=== PATIENT | male | born 1980 | race Caucasian/White ===

== ENCOUNTER 2016-07-25 16:30 | Observation (INO) | payer OTHER ==
[~2016-07-25] VITALS: Ht 193 cm; Wt 86.0 kg
[~2016-07-25 16:30] MED LIST: CYCL-36 PO
[2016-07-25 16:33] VITALS: BP 133/74; PULSE 55; RESP 16; TEMP 98; O2SAT 97
--- NOTE | 2016-07-25 17:15 | PD ---
HPI Chief Complaint: Chest Pain Time Seen by Provider: 16:59 Travel History International Travel<30 days: No Contact w/Intl Traveler<30days: No Traveled to known affect area: No History of Present Illness HPI 35 years old male complains of left-sided chest pain. Patient states that he had persistent left-sided chest pain for the past 4 days. Patient states the pain in combination aching pain and sharp pain localized to left chest. Patient denies any pain radiation. Patient denies diaphoresis. Patient states the pain is worse with deep breathing. Patient states that he has intermittent nausea vomiting shortness of breath with the chest pain. Patient denies any coughing congestion fever chills. Patient denies any history of CAD. Patient denies history hypertension, diabetes, dyslipidemia. Patient is a nonsmoker. Patient has family history of heart disease and diabetes. On a scale of 1-10 the pain is a 3. Patient was evaluated at local urgent care and referred to ED for evaluation. PFSH Social History Alcohol Use: No Tobacco Use: No Allergies-Medications (Allergen,Severity, Reaction): Coded Allergies: No Known Allergies (Unverified , 07/25/16) Reported Meds & Prescriptions Reported Meds & Active Scripts Active Flexeril (Cyclobenzaprine HCl) 10 Mg Tab 10 Mg PO TID PRN Review of Systems General / Constitutional: No: Fever Eyes: No: Visual changes HENT: No: Headaches Cardiovascular: Positive: Chest Pain or Discomfort Respiratory: No: Shortness of Breath Gastrointestinal: No: Abdominal Pain Genitourinary: No: Dysuria Musculoskeletal: No: Pain Skin: No Rash Neurologic: No: Weakness Psychiatric: No: Depression Endocrine: No: Polydipsia Hematologic/Lymphatic: No: Easy Bruising Physical Exam Narrative GENERAL: Well-nourished, well-developed patient. SKIN: Focused skin assessment warm/dry. HEAD: Normocephalic. EYES: No scleral icterus. No injection or drainage. NECK: Supple, trachea midline. No JVD or lymphadenopathy. CARDIOVASCULAR: Regular rate and rhythm without murmurs, gallops, or rubs. RESPIRATORY: Breath sounds equal bilaterally. No accessory muscle use. GASTROINTESTINAL: Abdomen soft, non-tender, nondistended. MUSCULOSKELETAL: No cyanosis, or edema. BACK: Nontender without obvious deformity. No CVA tenderness. Neurologic exam normal. Data Data Last Documented VS Vital Signs Date Time Temp Pulse Resp B/P Pulse Ox O2 Delivery O2 Flow Rate FiO2 07/25/16 17:20 97 Nasal Cannula 2 07/25/16 17:04 50 18 07/25/16 16:33 98.0 133/74 Orders Electrocardiogram (07/25/16 ) Complete Blood Count With Diff (07/25/16 17:10) Comprehensive Metabolic Panel (07/25/16 17:10) Creatine Kinase (Cpk) (07/25/16 17:10) Troponin I (07/25/16 17:10) Prothrombin Time / Inr (Pt) (07/25/16 17:10) Act Partial Throm Time (Ptt) (07/25/16 17:10) D-Dimer (07/25/16 17:10) Chest, Single Ap (07/25/16 17:10) Iv Access Insert/Monitor (07/25/16 17:10) Ecg Monitoring (07/25/16 17:10) Oximetry (07/25/16 17:10) Ct Pulmonary Angiogram (07/25/16 17:10) Iohexol 350 Inj (Omnipaque 350 Inj) (07/25/16 18:36) Labs Laboratory Tests Test 07/25/16 07/25/16 17:15 17:18 Prothrombin Time 11.6 SEC Prothromb Time International 1.0 RATIO Ratio Activated Partial 25.5 SEC Thromboplast Time D-Dimer Quantitative (PE/DVT) LESS THAN 0.19 MG/L FEU White Blood Count 8.4 TH/MM3 Red Blood Count 4.68 MIL/MM3 Hemoglobin 14.7 GM/DL Hematocrit 41.1 % Mean Corpuscular Volume 87.8 FL Mean Corpuscular Hemoglobin 31.3 PG Mean Corpuscular Hemoglobin 35.6 % Concent Red Cell Distribution Width 12.8 % Platelet Count 224 TH/MM3 Mean Platelet Volume 9.0 FL Neutrophils (%) (Auto) 62.5 % Lymphocytes (%) (Auto) 25.7 % Monocytes (%) (Auto) 7.0 % Eosinophils (%) (Auto) 4.2 % Basophils (%) (Auto) 0.6 % Neutrophils # (Auto) 5.2 TH/MM3 Lymphocytes # (Auto) 2.2 TH/MM3 Monocytes # (Auto) 0.6 TH/MM3 Eosinophils # (Auto) 0.4 TH/MM3 Basophils # (Auto) 0.0 TH/MM3 CBC Comment DIFF FINAL Differential Comment Sodium Level 141 MEQ/L Potassium Level 3.9 MEQ/L Chloride Level 106 MEQ/L Carbon Dioxide Level 28.3 MEQ/L Anion Gap 7 MEQ/L Blood Urea Nitrogen 12 MG/DL Creatinine 1.22 MG/DL Estimat Glomerular Filtration 67 ML/MIN Rate Random Glucose 89 MG/DL Calcium Level 8.6 MG/DL Total Bilirubin 0.5 MG/DL Aspartate Amino Transf 19 U/L (AST/SGOT) Alanine Aminotransferase 31 U/L (ALT/SGPT) Alkaline Phosphatase 114 U/L Total Creatine Kinase 187 U/L Troponin I LESS THAN 0.02 NG/ML Total Protein 7.1 GM/DL Albumin 4.0 GM/DL MDM Medical Decision Making Medical Screen Exam Complete: Yes Emergency Medical Condition: Yes Interpretation(s) Last Impressions Chest X-Ray 07/25/16 1710 Signed Impressions: Service Date/Time: Monday, July 25, 2016 17:27 - CONCLUSION: No acute disease. Jevon Figueroa MD 1832 PM. CBC within normal limit. CMP within normal limits. Cardiac enzymes are normal. D-dimer normal. Differential Diagnosis Differential diagnosis including musculoskeletal, angina, UT, PE, pneumothorax. Narrative Course 35 years old male with left-sided chest pain. Aspirin 325 g by mouth. Patient will be admitted to the chest pain center. Diagnosis Primary Impression: Chest pain Qualified Code: R07.9 - Chest pain, unspecified type Admitting Information Admitting Physician Requests: Saúl Larsen MD Jul 25, 2016 17:15
[2016-07-25 17:20] VITALS: O2SAT 97
[2016-07-25 17:51] LABS: AUTOMATED NEUTROPHIL # 5.2 TH/MM3 (1.8-7.7); BASOPHIL % 0.6 % (0.0-2.0); EOSINOPHIL # 0.4 TH/MM3 (0-0.4); EOSINOPHIL % 4.2 % (0.0-4.0); HEMATOCRIT 41.1 % (39.0-51.0); HEMO FLAGS DIFF FINAL; LYMPH % 25.7 % (9.0-44.0); LYMPHOCYTE # 2.2 TH/MM3 (1.0-4.8); MEAN CELL VOLUME 87.8 FL (80.0-100.0); MEAN CORPUSCULAR HEMOGLOBIN 31.3 PG (27.0-34.0); MEAN CORPUSCULAR HGB CONC 35.6 % (32.0-36.0); NEUT % 62.5 % (16.0-70.0); PLATELET COUNT 224 TH/MM3 (150-450); RED BLOOD COUNT 4.68 MIL/MM3 (4.50-5.90); RED CELL DISTRIBUTION WIDTH 12.8 % (11.6-17.2); WHITE BLOOD COUNT 8.4 TH/MM3 (4.0-11.0)
--- NOTE | 2016-07-25 17:55 | RADRPT ---
EXAM DATE/TIME: 07/25/2016 17:27 [facility] COMPARISON: No previous studies available for comparison. INDICATIONS : Left sided chest pain starting today MEDICAL HISTORY : None. SURGICAL HISTORY : None. ENCOUNTER: Initial ACUITY: 1 day PAIN SCORE: 7/10 LOCATION: Left chest FINDINGS: 2 AP erect portable views of the chest demonstrates the lungs to be symmetrically aerated without dev dence of mass, infiltrate or effusion. The cardiomediastinal contours are unremarkable. Osseous str uctures are intact. CONCLUSION: No acute disease. Jevon Figueroa MD on July 25, 2016 at 17:53 Board Certified Radiologist. This report was verified electronically.
[2016-07-25 18:03] LABS: APTT (PATIENT) 25.5 SEC (24.3-30.1); PROTHROMBIN TIME - PATIENT 11.6 SEC (9.8-11.6)
[2016-07-25 18:05] LABS: ALT (GPT) 31 U/L (12-78); ANION GAP 7 MEQ/L (5-15); AST (GOT) 19 U/L (15-37); BICARBONATE 28.3 MEQ/L (21.0-32.0); BLOOD UREA NITROGEN 12 MG/DL (7-18); CHLORIDE 106 MEQ/L (98-107); GLOMERULAR FILTRATION RATE 67 ML/MIN (>89); POTASSIUM 3.9 MEQ/L (3.5-5.1); SODIUM (NA) 141 MEQ/L (136-145)
[2016-07-25 18:09] LABS: ALKALINE PHOSPHATASE 114 U/L (45-117); CREATINE KINASE 187 U/L (39-308); TOTAL BILIRUBIN ADULT 0.5 MG/DL (0.2-1.0)
[2016-07-25] MEDS ORDERED: IOHEXOL 350 MG/ML 10 ML VIAL (for RAD DIAG) IV ONE (18:36)
--- NOTE | 2016-07-25 18:48 | RADRPT ---
EXAM DATE/TIME: 07/25/2016 18:30 [facility] COMPARISON: No previous studies available for comparison. INDICATIONS : Left sided chest pains for four days. IV CONTRAST: 70 cc Omnipaque 350 (iohexol) IV RADIATION DOSE: 23.62 CTDIvol (mGy) MEDICAL HISTORY : None SURGICAL HISTORY : None. ENCOUNTER: Initial ACUITY: 4 - 6 days PAIN SCALE: 5/10 LOCATION: Left chest TECHNIQUE: Volumetric scanning of the chest was performed using a pulmonary embolism protocol MIP images were re constructed. Using automated exposure control and adjustment of the mA and/or kV according to patien t size, radiation dose was kept as low as reasonably achievable to obtain optimal diagnostic quality images. FINDINGS: PULMONARY ARTERIES: No filling defects are seen in the pulmonary arteries through the segmental level. LUNGS: There is no consolidation or pneumothorax . No concerning pulmonary nodule is visualized. PLEURAE: There is no pleural thickening or pleural effusion. MEDIASTINUM: There is good visualization of the great vessels of the middle mediastinum. No evidence of mediastin al or hilar adenopathy/mass. MUSCULOSKELETAL: Within normal limits for patient age. MISCELLANEOUS: The visualized upper abdominal organs demonstrate no acute abnormality. CONCLUSION: No PE or other acute abnormality demonstrated. Shaq Elizondo MD on July 25, 2016 at 18:46 Board Certified Radiologist. This report was verified electronically.
[2016-07-25] MEDS ORDERED: ASPIRIN 325 MG TAB PO ONE (19:00)
[2016-07-25] MEDS ORDERED: ACETAMINOPHEN 500 MG CPLT PO PRN (19:00)
[2016-07-25] MEDS ORDERED: SODIUM CHLORIDE 0.9% FLUSH 10 ML FLUSH IV FLUSH PRN (19:00)
[2016-07-25] MEDS ORDERED: NITROGLYCERIN 0.4 MG SL 25 TABS/BTL SL PRN (19:00)
[2016-07-25] MEDS ORDERED: ONDANSETRON HCL 4 MG/2 ML VIAL IV PRN (19:00)
[2016-07-25] MEDS ORDERED: SODIUM CHLORIDE 0.9% FLUSH 10 ML FLUSH IV FLUSH SCH (21:00)
[2016-07-25 22:13] LABS: CREATINE KINASE 160 U/L (39-308)
[2016-07-25 22:18] VITALS: BP 131/66; PULSE 55; RESP 21; O2SAT 99
[2016-07-25 22:25] LABS: CKMB 1.9 NG/ML (0.5-3.6)
[2016-07-26 00:01] VITALS: PULSE 44
[2016-07-26 00:20] LABS: CREATINE KINASE 148 U/L (39-308)
[2016-07-26 00:32] LABS: CKMB 1.2 NG/ML (0.5-3.6)
[2016-07-26 03:41] VITALS: BP 113/51; PULSE 45; RESP 20; TEMP 98.5; O2SAT 97
[2016-07-26 08:17] VITALS: O2SAT 97
[2016-07-26 08:26] VITALS: BP 120/51; PULSE 55; RESP 22; TEMP 97.9; O2SAT 98
--- NOTE | 2016-07-26 08:54 | HHI.HP ---
HPI Primary Care Physician No Primary Care Physician Chief Complaint Chest pain History of Present Illness 35-year-old male with no significant medical history presents to the emergency room for further evaluation of left sided pain. Onset 4 days ago. Location left lateral, under her breasts. No radiation. Duration constant 4 days. Precipitating factors he contributes to a muscle strain during exercise. Characterized as a sharp pain. Deep breathing and palpitation makes pain worse. No associated symptoms. No known relieving factors. 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 An EKG was completed and he was instructed to be evaluated in the ER. Has never had chest pain in the past. Review of Systems General: No fatigue,weakness, fever, chills, recent illness, or change in appetite. Has been in his general state of health. Active working out at the gym multiple times weekly. HEENT: No VARELA, no nasal congestion or drainage CV: As stated above. Continues to have chest pain as stated above. No palpitations, intermittent leg pain, dizziness. RESP: No SOB, cough, wheeze, or recent URI. GI: No nausea or vomiting, bowel changes, diarrhea, constipation, pain. : No dysuria, urgency, frequency EXT: No lower leg edema, no paraesthesias MS: No discomfort or change in ROM NEURO: No change in memory, dizziness, difficulty with balance, LOC, motor/ sensory deficits PSYCH: No anxiety or depression SKIN: No rashes, no concerning lesions Past Family Social History Allergies: Coded Allergies: No Known Allergies (Unverified , 07/25/16) Past Medical History None Past Surgical History None Reported Medications Reported Meds & Active Scripts Active No Active Prescriptions or Reported Medications Active Ordered Medications Current Medications Medications (Trade) Dose Ordered Sig/Dillon Route Start Time Stop Time Status Last Admin (NS Flush) 2 ml UNSCH PRN IV FLUSH 07/25/16 19:00 (NS Flush) 2 ml BID IV FLUSH 07/25/16 21:00 07/25/16 21:26 (Tylenol) 500 mg Q4H PRN PO 07/25/16 19:00 07/25/16 22:30 (Zofran Inj) 4 mg Q6H PRN IV 07/25/16 19:00 (Nitrostat Sl) 0.4 mg Q5M PRN SL 07/25/16 19:00 Family History Noncontributory for early onset cardiovascular disease. Social History No known diabetes, hyperlipidemia, or hypertension. Former user of chewing tobacco, quit many years ago. Denies any alcohol or illegal drug use. Active, works out at the gym on a regular basis. Past cardiac testing No formal cardiac testing Physical Exam Vital Signs Vital Signs Date Time Temp Pulse Resp B/P Pulse Ox O2 Delivery O2 Flow Rate FiO2 07/26/16 08:26 97.9 55 22 120/51 98 07/26/16 08:17 97 Nasal Cannula 2.00 07/26/16 03:41 98.5 45 20 113/51 97 07/26/16 03:41 45 07/26/16 00:01 44 07/25/16 22:18 55 21 131/66 99 07/25/16 17:20 97 Nasal Cannula 2 07/25/16 17:04 50 18 97 Room Air 07/25/16 16:33 98.0 55 16 133/74 97 Physical Exam GENERAL: Alert WN, WD, NAD, pleasant, male HEAD: NC, AT EYES: Sclera clear, conjunctiva without injection, pupils equal and round ENT: Mucous membranes pink and moist CV: RRR, without murmur, rub, gallop, no JVD, S1-S2 no S3-S4. RESP: Clear lungs throughout bilateral, no crackles, wheeze, rhonchi, symmetrical chest rise, nonlabored, able to speak in full sentences ABD: Soft, NT, ND, no masses, positive bowel tones EXT: Pulses +24, no dependent edema MS: Left lateral chest wall pain reproduced with palpitation and deep breathing. Normal tone 4 extremities, nontender, no obvious deformities, full range of motion NEURO: CN II through CN XII grossly intact, motor strength 5/5, gait WNL PSYCH: A+O 3, pleasant affect, appropriate speech, appropriate mood and affect , insight and judgment SKIN: Normal turgor, normal texture, no lesions, no rashes, brisk cap refill, even hair distribution Laboratory Laboratory Tests Test 07/25/16 07/25/16 07/25/16 07/25/16 17:15 17:18 21:00 23:23 Prothrombin Time 11.6 Prothromb Time International 1.0 Ratio Activated Partial 25.5 Thromboplast Time D-Dimer Quantitative (PE/DVT) LESS THAN 0.19 White Blood Count 8.4 Red Blood Count 4.68 Hemoglobin 14.7 Hematocrit 41.1 Mean Corpuscular Volume 87.8 Mean Corpuscular Hemoglobin 31.3 Mean Corpuscular Hemoglobin 35.6 Concent Red Cell Distribution Width 12.8 Platelet Count 224 Mean Platelet Volume 9.0 Neutrophils (%) (Auto) 62.5 Lymphocytes (%) (Auto) 25.7 Monocytes (%) (Auto) 7.0 Eosinophils (%) (Auto) 4.2 Basophils (%) (Auto) 0.6 Neutrophils # (Auto) 5.2 Lymphocytes # (Auto) 2.2 Monocytes # (Auto) 0.6 Eosinophils # (Auto) 0.4 Basophils # (Auto) 0.0 CBC Comment DIFF FINAL Differential Comment Sodium Level 141 Potassium Level 3.9 Chloride Level 106 Carbon Dioxide Level 28.3 Anion Gap 7 Blood Urea Nitrogen 12 Creatinine 1.22 Estimat Glomerular Filtration 67 Rate Random Glucose 89 Calcium Level 8.6 Total Bilirubin 0.5 Aspartate Amino Transf 19 (AST/SGOT) Alanine Aminotransferase 31 (ALT/SGPT) Alkaline Phosphatase 114 Total Creatine Kinase 187 160 148 Troponin I LESS THAN 0.02 LESS THAN 0.02 LESS THAN 0.02 Total Protein 7.1 Albumin 4.0 Creatine Kinase MB 1.9 1.2 Result Diagram: 07/25/16171707/25/161717 Imaging Last Impressions Chest X-Ray 07/25/161709 Signed Impressions: Service Date/Time: Monday, July 25, 2016 17:27 - CONCLUSION: No acute disease. Jevon Figueroa MD CT Angiography 07/25/161709 Signed Impressions: Service Date/Time: Monday, July 25, 2016 18:30 - CONCLUSION: No PE or other acute abnormality demonstrated. Shaq Elizondo MD Course EKGs 3 EKGs show normal sinus bradycardic rhythm, normal axis, no ST or T-segment changes Assessment and Plan Assessment and Plan #1 Chest painadmitted to chest pain center. Ruled out with 3 sets of EKGs, cardiac enzymes, and monitored overnight. Seen and evaluated by Dr. Zainab Nix. Patient's chest discomfort clearly musculoskeletal in nature and has no risk factors of cardiovascular disease. No further cardiac testing required. Will discharge charged this morning. #2 Musculoskeletal painprescription provided for prescription strength naproxen. Instructed to take for the next 5 days with food. May use warm heat to area. No restrictions. Follow up with PCP if pain persists. Meghan Pickett Jul 26, 2016 08:54
--- NOTE | 2016-07-26 08:56 | HHI.DCPOC ---
Discharge Care Plan Diagnosis: (1) Musculoskeletal chest pain Goals to Promote Your Health * To prevent worsening of your condition and complications * To maintain your health at the optimal level Directions to Meet Your Goals Take your medications as prescribed Follow your dietary instruction Follow activity as directed Keep your appointments as scheduled Take your immunizations and boosters as scheduled If your symptoms worsen call your PCP, if no PCP go to Urgent Care Center or Emergency Room Smoking is Dangerous to Your Health. Avoid second hand smoke Call the 24-hour hour crisis hotline for domestic abuse at Meghan Pickett Jul 26, 2016 08:56
[2016-07-26] MEDS ORDERED: NAPR500T PO (09:00)
--- NOTE | 2016-07-26 14:03 | EKG ---
Date Performed: 07/25/2016 Time Performed: 23:39:57 PTAGE: 35 years EKG: SINUS BRADYCARDIA BORDERLINE ECG Since PREVIOUS TRACING , no significant change noted PREVIOUS TRACIN07/25/2016 17.12 DOCTOR: Zainab Nix Interpretating Date/Time 07/26/2016 14:00:13
--- NOTE | 2016-07-26 14:04 | EKG ---
Date Performed: 07/25/2016 Time Performed: 21:21:59 PTAGE: 35 years EKG: SINUS BRADYCARDIA BORDERLINE ECG Since previous tracing, no significant change noted NO PREVIOUS TRACING DOCTOR: Zainab Nix Interpretating Date/Time 07/26/2016 14:00:39
--- NOTE | 2016-07-30 08:20 | EKG ---
Date Performed: 07/25/2016 Time Performed: 17:12:33 PTAGE: 35 years EKG: SINUS BRADYCARDIA BORDERLINE ECG NO PREVIOUS TRACING DOCTOR: Catarino Hunt Interpretating Date/Time 07/30/2016 08:17:00
== END 2016-07-26 10:34 | disposition home or self-care (01) ==
LOC: NEPD 16:30 → NEDA 19:00 → NEPHCDU 22:05
PROVIDERS: ADMIT Internal Medicine Cardiovascular Disease; ATTEND Internal Medicine Cardiovascular Disease
DX: R07.89 Other chest pain (principal); M79.1 Myalgia; R94.31 Abnormal electrocardiogram [ECG] [EKG]; Z87.891 Personal history of nicotine dependence; Z83.3 Family history of diabetes mellitus; Z82.49 Family history of ischemic heart disease and other diseases of the circulatory system
CPT/HCPCS: 71010; 71275; 80053; 82550; 82552; 84484; 85025; 85379; 85610; 85730; 93005; 99285; G0378; Q9967